=== PATIENT | female | born 1975 | race Caucasian/White ===

== ENCOUNTER → 2019-09-15 10:37 | Outpatient (CLI) | payer OTHER, SELFPAY ==
--- NOTE | 2019-09-15 | DI.RAD.S_ITS ---
PROCEDURE: XR SHOULDER LT MIN 2V INDICATIONS: Pain In Both Shoulders and Neck Pain TECHNIQUE: 3 views of the shoulder were acquired. COMPARISON: None. FINDINGS: Bones: No fractures or dislocations. No suspicious bony lesions. Visualized ribs appear intact. Soft tissues: No suspicious soft tissue calcifications. IMPRESSION: Mild a.c. joint osteoarthritic change, no trauma or subluxation found. Dictated by: Imtiaz Khoury M.D. on 09/15/2019 at 11:55 Approved by: Imtiaz Khoury M.D. on 09/15/2019 at 11:55
--- NOTE | 2019-09-15 | DI.RAD.S_ITS ---
PROCEDURE: XR CERVICAL SPINE 2V OR 3V INDICATIONS: Pain In Both Shoulders and Neck Pain TECHNIQUE: 3 view(s) of the cervical spine were acquired. COMPARISON: None. FINDINGS: Bones: No fractures or dislocations to the T1 level. The lateral masses of C1 appear intact on the odontoid view. No suspicious bony lesions. Soft tissues: No prevertebral soft tissue swelling. IMPRESSION: No cervical source of shoulder pain is identified. Please note that MR scanning may be warranted if nerve root impingement is clinically suspected. Dictated by: Imtiaz Khoury M.D. on 09/15/2019 at 11:54 Approved by: Imtiaz Khoury M.D. on 09/15/2019 at 11:55
--- NOTE | 2019-09-15 | DI.RAD.S_ITS ---
PROCEDURE: XR SHOULDER RT MIN 2V INDICATIONS: Pain In Both Shoulders and Neck Pain TECHNIQUE: 3 views of the shoulder were acquired. COMPARISON: None. FINDINGS: Bones: No fractures or dislocations. No suspicious bony lesions. Visualized ribs appear intact. Soft tissues: No suspicious soft tissue calcifications. IMPRESSION: Normal appearance, source of pain is not seen. Dictated by: Imtiaz Khoury M.D. on 09/15/2019 at 11:55 Approved by: Imtiaz Khoury M.D. on 09/15/2019 at 11:56
== END ==
PROVIDERS: PCP Internal Medicine; Referring Provider Internal Medicine; Visit Provider Internal Medicine
DX: M25.512 Pain in left shoulder (principal); M25.511 Pain in right shoulder; M54.2 Cervicalgia; M24.812 Other specific joint derangements of left shoulder, not elsewhere classified
CPT/HCPCS: 72040; 73030

== ENCOUNTER → 2019-09-28 14:36 | Outpatient (CLI) | payer OTHER, SELFPAY ==
[2019-09-28 15:34] LABS: Add Manual Diff / Slide Review NO; Basophils Absolute Auto 0 /uL (0-100); Basophils Percent Auto 0.2 % (0-2); Eosinophils Absolute Auto 200 /uL (0-450); Hematocrit 42.8 % (36-46); Hemoglobin 14.7 g/dL (12.0-16.0); Lymphocytes Absolute Auto 2500 /uL (1100-4500); Lymphocytes Percent Auto 26.6 % (25-40); Mean Corpuscular HGB Conc 34.3 % (30-36); Mean Corpuscular Hemoglobin 28.9 PG (26-34); Mean Corpuscular Volume 84.4 fL (80-100); Monocytes Absolute Auto 400 /uL (0-900); Monocytes Percent Auto 4.7 % (3-14); Neutrophils Absolute Auto 6200 /uL (1500-7000); Neutrophils Percent Auto 66.5 % (50-75); Platelet Count 250 X10^3/uL (150-400); Red Blood Cell Count 5.07 X10^6/uL (4.0-5.2); Red Cell Distribution Width 13.6 % (11.6-14.8); White Blood Cell Count 9.4 X10^3/uL (4.5-11.0)
[2019-09-28 15:50] LABS: Alanine Aminotransferase 18 IU/L (<35); Albumin 4.3 g/dL (3.5-5.0); Albumin Globulin Ratio 1.1 (1.0-2.8); Alkaline Phosphatase 88 U/L (38-126); Aspartate Aminotransferase 26 IU/L (14-36); BUN Creatinine Ratio 20.6 (6-22); Bilirubin Total 0.4 mg/dL (0.2-1.3); Blood Urea Nitrogen 14 mg/dL (7-17); C-Reactive Protein Quant 1.8 mg/dL (<1.0); Calcium 9.5 mg/dL (8.4-10.2); Carbon Dioxide 20 mmol/L (22-32); Chloride 105 mmol/L (98-107); Estimated Glomerular Filt Rate > 60.0 mL/min (>60); Globulin 3.8 g/dL (1.7-4.1); Glucose 146 mg/dL (70-100); HEMOLYSIS 26 (0-50); Potassium 4.2 mmol/L (3.4-5.1); Sodium 138 mmol/L (137-145); Total Protein 8.1 g/dL (6.3-8.2)
[2019-09-28 15:51] LABS: Rheumatoid Factor < 8.6 IU/mL (<12.0)
[2019-09-28 16:01] LABS: Erythrocyte Sedimentation Rate 19 MM/HR (0-20)
[2019-09-28 17:08] LABS: TSH w/ Reflex to FT4 2.52 uIU/mL (0.47-4.68); Vitamin D 25 Hydroxy (D3) 40.1 ng/mL (30.0-100.0)
[2019-09-30 16:14] LABS: ANA Screen, IFA Negative (.)
[2019-09-30 22:38] LABS: CCP Antibodies IgG/IgA 6 units (0-19)
== END ==
PROVIDERS: PCP Internal Medicine; Referring Provider Internal Medicine; Visit Provider Internal Medicine
DX: M25.511 Pain in right shoulder (principal); H04.129 Dry eye syndrome of unspecified lacrimal gland; K11.7 Disturbances of salivary secretion; R53.83 Other fatigue
CPT/HCPCS: 36415; 80053; 82306; 84443; 85025; 85651; 86038; 86140; 86200; 86430